=== PATIENT | male | born 1960 | race Caucasian/White ===

== ENCOUNTER → 2017-08-06 | Outpatient (CLI) | payer BC ==
--- NOTE | 2017-08-06 11:43 | RADIOLOGY IMAGING REPORT ---
FACILITY: [facility] PATIENT NAME: Misbah Oliveros : 1960 MR: [id number] V: [id number] EXAM DATE: ORDERING PHYSICIAN: NANCI GARCIA TECHNOLOGIST: Location: [facility] Patient: Misbah Oliveros : 1960 Visit/Account:[id number] Date of Sevice: 08/06/2017 SCROTAL ULTRASOUND INDICATION: Bilateral hydroceles COMPARISON: None available. FINDINGS: Right testicle measures 5.0 x 2.7 x 3.9 cm in cc, AP, and transverse dimensions respectively. There are scattered testicular microcalcifications. There is normal arterial and venous blood flow. Present is a moderate right-sided hydrocele. No varicocele identified. The right epididymal head measures 0.8 cm. Left testicle measures 5.1 x 3.5 x 3.1 cm in cc, AP, and transverse dimensions respectively. There is normal arterial and venous blood flow. There are scattered testicular microcalcification. Present is a large left-sided hydrocele No varicocele identified. The left epididymal head measures 1.0 cm. The bilateral testicles appear homogenous in echogenicity. IMPRESSION: 1. Large left and moderate right-sided hydrocele. 2. Testicular microlithiasis. In the absence of known risk factors such as testicular cancer these findings are benign. Report Dictated By: Conrad Haro DO at 08/06/2017 11:33 AM Report E-Signed By: Conrad Haro DO at 08/06/2017 11:39 AM WSN:[email or web address]
== END ==
LOC: US 02:20
PROVIDERS: ATTEND Urology
DX: N43.3 Hydrocele, unspecified (principal); N50.89 Other specified disorders of the male genital organs
CPT/HCPCS: 76870

== ENCOUNTER 2017-09-09 00:52 | Day surgery (SDC) | payer BC ==
[2017-09-04 15:52] LABS: PLATELET COUNT, AUTOMATED 189 K/uL (150-450)
--- NOTE | 2017-09-04 15:52 | EKG ---
FACILITY: [facility] PATIENT NAME: TOM JEAN-BAPTISTE : [id number] MR: [id number] V: [id number] EXAM DATE: ORDERING PHYSICIAN: NANCI GARCIA TECHNOLOGIST: LUIS ALBERTO Perez Reason : Blood Pressure : / mmHG Vent. Rate : 068 BPM Atrial Rate : 068 BPM P-R Int : 156 ms QRS Dur : 090 ms QT Int : 408 ms P-R-T Axes : 038 056 045 degrees QTc Int : 433 ms Normal sinus rhythm Normal ECG No previous ECGs available Confirmed by CODI AKERS ([id number]) on 09/05/2017 12:30:24 PM Referred By: RADHA Confirmed By:CODI AKERS
[2017-09-04 16:01] LABS: INR 1.03
--- NOTE | 2017-09-06 14:42 | HISTORY AND PHYSICAL ---
DATE OF ADMISSION: September 09, 2017 CHIEF COMPLAINT Left hydrocele. HISTORY OF PRESENT ILLNESS Patient is a 56-year-old white male with a several-year history of increasing left scrotal swelling which is now associated with a moderate amount of discomfort, especially with standing and prolonged sitting. The patient denies chronic cough, obstructed voiding symptoms, or constipation. He was evaluated in the Urology Clinic on the 02 of August. At that time, he had a normal urinalysis and a PSA of 0.5. Physical exam was consistent with a left hydrocele. A testicular ultrasound was performed on the , which confirmed the clinical exam. There were no anomalies noted to either testis. Options were discussed, and patient elected to undergo hydrocelectomy. 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 * Prediabetes. * Hypercholesterolemia. * Hypertension. * Gastroesophageal reflux disease. * ED. PAST SURGICAL HISTORY * Bilateral vasectomy. * Tonsillectomy. * Colonoscopy. CURRENT MEDICATIONS * Aspirin. * Amlodipine. * Folic acid. * Gemfibrozil. * Levothyroxine. * Losartan. * Multivitamins. * Omeprazole. ALLERGIES No known drug allergies. SOCIAL HISTORY Patient is and lives in [place], [place]. He does have a tobacco use history. FAMILY HISTORY Noncontributory. REVIEW OF SYSTEMS Patient denies shortness of breath, productive cough, fever, chills, bleeding disorder, chronic headaches, or liver disease. PHYSICAL EXAMINATION GENERAL: Patient is a well-developed, well-nourished, white male in no acute distress. HEENT: Normocephalic, atraumatic. CHEST: Clear to auscultation bilaterally. CARDIOVASCULAR: Regular rate and rhythm. ABDOMEN: Soft, nontender. No masses are palpated. GENITOURINARY: Deferred to the OR. EXTREMITIES: Without clubbing, cyanosis, or edema. NEUROLOGIC: Nonfocal. IMPRESSION A 56-year-old white male with symptomatic left hydrocele. PLAN We will perform left hydrocelectomy. Specific risks and benefits were again reviewed preoperatively including bleeding, infection, recurrence of hydrocele, damage to testes with possible testicular atrophy, recurrence or persistent of pain or discomfort, and nerve paresthesias. [facility]
[~2017-09-09] VITALS: Ht 177.8 cm; Wt 100.7 kg
[2017-09-09] VITALS (7 sets, daily range): BP systolic 131–159; BP diastolic 92–105
[~2017-09-09 00:52] MED LIST: AMLO-99 PO; ASPI-1471 PO; FOLI-68 PO; GEMF600T91 PO; LEVO50TA86 PO; LOSA25TA50 PO; MV-M1TAB19 PO; MV-M1TAB22 PO; OMEP-125 PO
[2017-09-09] MEDS ORDERED: ceFAZolin(*) 1 GM VIAL 1 GM in NS(*) 0.9% 100 ML ADDVANT BAG 100 ML IVPB ONE (06:30)
[2017-09-09] MEDS ORDERED: NORMOSOL R SOLN(*) 1000 ML BAG 1,000 ML IV PRN (06:30)
[2017-09-09] MEDS ORDERED: LIDOCAINE/SOD BICARB 8.4% SYR ID ONE (06:30)
[2017-09-09] MEDS ORDERED: MIDAZOLAM 2 MG/2 ML VIAL IVP PRN (06:30)
[2017-09-09] MEDS ORDERED: POVIDONE IOD 10% OINT 30 GM TB TP ONE (06:51)
[2017-09-09] MEDS ORDERED: ROPIVACAINE 0.2% 20 ML VIAL ONE (06:52)
[2017-09-09] MEDS ORDERED: KETOROLAC 30 MG/ML VIAL ONE (07:20)
[2017-09-09] MEDS ORDERED: DEXAMETHASONE SOD PHOS 10MG/ML ONE (07:20)
[2017-09-09] MEDS ORDERED: PROPOFOL EMUL(*) 10MG/ML 20 ML 40 ML ONE (07:20)
[2017-09-09] MEDS ORDERED: LIDOCAINE MPF 1% 5 ML VIAL ONE (07:20)
[2017-09-09] MEDS ORDERED: ONDANSETRON 4 MG/2 ML VIAL ONE (07:20)
[2017-09-09] MEDS ORDERED: fentaNYL CITR 100 MCG/2 ML AMP ONE (07:20)
[2017-09-09] MEDS ORDERED: LABETALOL HCL 100 MG/20ML VIAL ONE ×2 (08:31→08:32)
[2017-09-09] MEDS ORDERED: HYDR-4309 PO (09:07)
[2017-09-09] MEDS ORDERED: DOCU-416 PO (09:07)
[2017-09-09] MEDS ORDERED: IBUP600T22 PO (09:08)
--- NOTE | 2017-09-10 04:21 | OPERATIVE REPORT 1 ---
EVENT DATE: September 09, 2017 SURGEON: Erik Daniel MD ANESTHESIOLOGIST: Ramon Gabriel MD ANESTHESIA: General. PREOPERATIVE DIAGNOSIS Left hydrocele. POSTOPERATIVE DIAGNOSIS Left hydrocele. PROCEDURE PERFORMED Left hydrocelectomy. ESTIMATED BLOOD LOSS 10 mL. IV FLUIDS Crystalloids. DRAINS None. PATHOLOGY Hydrocele sac for permanent analysis. COMPLICATIONS None. CONDITION Patient taken to recovery room awake and in stable condition. STATEMENT OF MEDICAL NECESSITY Patient is a 56-year-old white male with a slowly increasing symptomatic left hydrocele, which was confirmed by physical exam and ultrasound. He is now being brought to the operating room for planned hydrocelectomy. Specific risks and benefits were explained, including bleeding, infection, postoperative hematoma, possible damage to vas and/or vessels with testicular atrophy and residual pain and/or discomfort and possible recurrence. Operative consent is signed and on the chart. DESCRIPTION OF OPERATION PERFORMED Patient was brought to the operating room, and after general anesthetic was obtained, he was placed supine on the operating room table and prepped and draped in usual sterile manner. A 4 cm transverse mid scrotal incision was performed on the left side with the 15 blade knife and was taken down to the tunica vaginalis. This was bluntly dissected from the left hemiscrotum and delivered through the wound. A small rent was made in the anterior surface of the tunica vaginalis, and approximately 400 mL of clear yellow fluid were drained. The hydrocele sac was opened and the testis inspected. It appeared normal without evidence of tumor or abnormality. The appendix testis was fulgurated. At this point, redundant hernia sac was removed sharply with electrocautery, and then the hernia sac was plicated on the posterior testis and cord using running locking 4-0 chromic stitches. At this point, small bleeding vessels along the cord and inner scrotum were controlled with electrocautery. 0.25% ropivacaine was given along the cord for a cord block and along the skin edge. Antibiotic solution was then copiously irrigated throughout the wound. At this point, the testis was placed back in its normal anatomical position, ensuring the vas and vessels were not twisted. Three orchiopexy stitches were placed through the dartos and tunica albuginea at the nine, six and three o'clock positions with 4-0 chromic. Following this, the incision was closed with a deep layer of running locking 2-0 chromic followed by more superficial dartos layer with 3-0 chromic. The skin was reapproximated with interrupted 4-0 mattress chromic stitches. Skin adhesive was placed along the skin edge at the conclusion of the procedure, then a sterile dressing with fluff dressing inside a scrotal support was applied. Patient was awakened in the operating room and taken to the recovery area in stable condition. The plan will be to allow the patient to be discharged home today on Dewey alternating with Motrin. He was also given a prescription for Colace. He was given instructions to use a scrotal support and ice pack for the next 36 hours. Will plan to see him in the urology clinic in approximately four to six weeks for a followup exam. STACEY
== END 2017-09-09 09:35 | disposition home or self-care (01) ==
LOC: OR 00:52
PROVIDERS: ATTEND Urology
DX: N43.3 Hydrocele, unspecified (principal); I10 Essential (primary) hypertension; E03.9 Hypothyroidism, unspecified; K21.9 Gastro-esophageal reflux disease without esophagitis; E66.9 Obesity, unspecified; E78.00 Pure hypercholesterolemia, unspecified; N52.9 Male erectile dysfunction, unspecified; R73.03 Prediabetes; E06.3 Autoimmune thyroiditis; Z79.899 Other long term (current) drug therapy
CPT/HCPCS: 36415; 55500; 81001; 85025; 85610; 85730; 87088; 88304; 93005; J0690; J1100; J1885; J2001; J2250; J2405; J2704; J2795; J3010; J3490; J7050; 82040; 82247; 82310; 82374; 82435; 82565; 82947; 84075; 84132; 84155; 84295; 84450; 84460; 84520

== ENCOUNTER → 2017-11-26 | Outpatient (CLI) | payer BC ==
[~2017-11-26] MED LIST changes: +DOCU-416 PO; +HYDR-4309 PO; +IBUP600T22 PO
--- NOTE | 2017-11-26 16:00 | RADIOLOGY IMAGING REPORT ---
FACILITY: [facility] PATIENT NAME: Sukhdeep Oliveros : 1960 MR: [id number] V: [id number] EXAM DATE: ORDERING PHYSICIAN: NANCI GARCIA TECHNOLOGIST: Location: [facility] [place] Patient: Sukhdeep Oliveros : 1960 Visit/Account:[id number] Date of Sevice: 11/26/2017 Scrotal ultrasound HISTORY: Left hydrocele, swelling, status post surgical resection of a left hydrocele in August COMPARISON: Ultrasound 08/06/2017 TECHNIQUE: Richardson scale, color and Duplex imaging of the scrotum was performed. FINDINGS: Testes: Right Testicle : The right testicle is normal is size and echotexture and measures 5 x 3.3 x 3.3 cm. 2 benign-appearing calcifications in the right testicle are noted. Normal color Doppler wavefor ms are documented. Small right hydrocele is noted. Right epididymal head measures 1 cm. Left Testicle : The left testicle is normal in size and echotexture and measures 4.5 x 2.3 x 3.1 cm. The left epididymal head measures 0.8 cm. Normal color Doppler waveforms are documented. There is a large complex septated left scrotal hydrocele measuring at least 5.3 x 6.6 x 6.6 cm. Some internal swirling debris is noted. This finding is new from prior examination. Patient reportedly had the prior left hydrocele resected. Differential diagnosis is hematoma versus abscess. IMPRESSION: 1. Large complex septated left hydrocele with internal swirling debris. Patient reportedly had prio r surgery for resection of the hydrocele at the end of August. The differential diagnosis is a hemato ma versus an abscess. This collection deforms the left testicle but blood flow is documented to the left testicle. Results were called to NANCI GARCIA at 11/26/2017 3:14 PM. Report Dictated By: Eloy Guerra MD at 11/26/2017 2:35 PM Report E-Signed By: Eloy Guerra MD at 11/26/2017 3:55 PM WSN:[email or web address]
== END ==
LOC: US 01:48
PROVIDERS: ATTEND Urology
DX: N43.3 Hydrocele, unspecified (principal)
CPT/HCPCS: 76870

== ENCOUNTER → 2018-04-14 | Outpatient (CLI) | payer BC ==
[~2018-04-14] MED LIST changes: +AMLO-113 PO; -AMLO-99 PO; -GEMF600T91 PO; +GEMF600T92 PO; -HYDR-4309 PO; +HYDR-653 PO; -LOSA25TA50 PO; +LOSA25TA52 PO
--- NOTE | 2018-04-14 17:58 | RADIOLOGY IMAGING REPORT ---
FACILITY: [facility] [place] PATIENT NAME: Sukhdeep Oliveros : 1960 MR: [id number] V: [id number] EXAM DATE: [id number] ORDERING PHYSICIAN: MALINI KELSEY TECHNOLOGIST: Location: [facility] Patient: Sukhdeep Oliveros : 1960 Visit/Account:[id number] Date of Sevice: 04/14/2018 Exam type: FOOT 2 VIEW LEFT History: Ankle edema and pain Comparison: Left ankle series performed today. Findings: Slightly comminuted oblique fracture through the distal left fibula was better depicted on today's le ft ankle series. There is no evidence of acute fracture or dislocation involving the left foot IMPRESSION: 1. No evidence of acute fracture-dislocation involving the left foot Slightly comminuted oblique fracture to the distal left fibula was better seen on today's left ankle series Report Dictated By: Veronica Gant MD at 04/14/2018 5:53 PM Report E-Signed By: Veronica Gant MD at 04/14/2018 5:54 PM WSN:[email or web address]
--- NOTE | 2018-04-14 17:58 | RADIOLOGY IMAGING REPORT ---
FACILITY: [facility] [place] PATIENT NAME: Sukhdeep Oliveros : 1960 MR: [id number] V: [id number] EXAM DATE: [id number] ORDERING PHYSICIAN: MALINI KELSEY TECHNOLOGIST: Location: [facility] Patient: Sukhdeep Oliveros : 1960 Visit/Account:[id number] Date of Sevice: 04/14/2018 Exam type: ANKLE 2 VIEW LEFT History: Ankle pain and edema Comparison: None. Findings: There is a slightly comminuted oblique fracture through the distal metaphysis of the left fibula with approximate 2 mm lateral displacement of the distal fracture fragment. The ankle mortise is grossly intact. There is a moderate amount of soft tissue swelling present IMPRESSION: 1. Slightly comminuted oblique fracture to the distal metaphysis of the left fibula with approximate 2 mm lateral displacement distal fracture fragment. There is associated moderate soft tissue swelli ng Report Dictated By: Veronica Gant MD at 04/14/2018 5:51 PM Report E-Signed By: Veronica Gant MD at 04/14/2018 5:53 PM WSN:[email or web address]
== END ==
LOC: RAD 16:18
PROVIDERS: ATTEND Nurse Practitioner Family
DX: S82.452A Displaced comminuted fracture of shaft of left fibula, initial encounter for closed fracture (principal); R22.42 Localized swelling, mass and lump, left lower limb

== ENCOUNTER → 2018-04-17 | Outpatient (CLI) | payer BC | LOC: US 00:30 | PROVIDERS: ATTEND Nurse Practitioner Family | DX: R55 Syncope and collapse (principal); M25.579 Pain in unspecified ankle and joints of unspecified foot; R60.0 Localized edema; I10 Essential (primary) hypertension | CPT/HCPCS: 93306 ==

== ENCOUNTER → 2018-06-16 | Outpatient (CLI) | payer BC ==
[~2018-06-16] MED LIST changes: -AMLO-113 PO; +AMLO-127 PO; +GADOBENATE 529MG/1ML 15ML VIAL IVP ONE; -GEMF600T92 PO; +GEMF600T96 PO; -LOSA25TA52 PO; +LOSA25TA57 PO; +NS(*) 0.9% 50 ML BAG 50 ML ONE
--- NOTE | 2018-06-16 13:14 | RADIOLOGY IMAGING REPORT ---
FACILITY: [facility] [place] PATIENT NAME: Sukhdeep Oliveros : 1960 MR: [id number] V: [id number] EXAM DATE: ORDERING PHYSICIAN: IRENE PERDOMO TECHNOLOGIST: Location: [facility] Patient: Sukhdeep Oliveros : 1960 Visit/Account:[id number] Date of Sevice: 06/16/2018 MRA HEAD W/O CONTRAST COMPARISON: None Additional pertinent history: Drop attack Technique: 3-D [id number] imaging was performed of the telida of [place]son with multiple reformatted images obtained off the axial source data. FINDINGS: Vascular variants: origin of the left posterior cerebral artery. Visualized vertebrobasilar system: Negative Distal internal carotid arteries: Negative Internal carotid artery bifurcation: Negative A1 and M1 segments: Negative A2 and M2 segments: Negative Anterior communicating artery: Negative P1 segments/superior cerebellar arteries: Negative IMPRESSION: Normal MRA of the telida of [place]son. Report Dictated By: Vishnu Henry MD at 06/16/2018 12:58 PM Report E-Signed By: Vishnu Henry MD at 06/16/2018 1:04 PM WSN:[email or web address]
--- NOTE | 2018-06-16 13:34 | RADIOLOGY IMAGING REPORT ---
FACILITY: [facility] [place] PATIENT NAME: Sukhdeep Oliveros : 1960 MR: [id number] V: [id number] EXAM DATE: ORDERING PHYSICIAN: IRENE PERDOMO TECHNOLOGIST: Location: Patient: Sukhdeep Oliveros : 1960 Visit/Account:[id number] Date of Sevice: 06/16/2018 MRA NECK W W/O CONTRAST COMPARISON: None ADDITIONAL PERTINENT HISTORY: Drop attack Technique: 3-D [id number] imaging and contrasted enhanced MRA was performed of the neck arterial vasculature with multiple reformatted images obtained off the axial source data. Study was performed before and after the IV administration of gadolinium. Degrees of stenosis of the cervical internal carotid arteries are based on NASCET criteria. CONTRAST: 15 ml of MultiHance FINDINGS: Vascular variants: None Great vessel origins/aortic arch: Negative Vertebral arteries: Negative Common carotid arteries: Negative Common carotid artery bifurcations: Negative Cervical internal carotid arteries: Mild atherosclerotic irregularity along the proximal portion of t he right cervical internal carotid artery without significant stenosis. Visualized intracranial arterial anatomy: Negative Surrounding soft tissues: Negative IMPRESSION: 1. Mild atherosclerotic irregularity along the proximal right cervical internal carotid artery withou t significant stenosis. 2. Remaining portions of the exam are unremarkable. Report Dictated By: Vishnu Henry MD at 06/16/2018 1:21 PM Report E-Signed By: Vishnu eHnry MD at 06/16/2018 1:26 PM WSN:[email or web address]
--- NOTE | 2018-06-16 13:36 | RADIOLOGY IMAGING REPORT ---
FACILITY: [facility] [place] PATIENT NAME: Sukhdepe Oliveros : 1960 MR: [id number] V: [id number] EXAM DATE: ORDERING PHYSICIAN: IRENE PERDOMO TECHNOLOGIST: Location: [facility] [place] Patient: Sukhdeep Oliveros : 1960 Visit/Account:[id number] Date of Sevice: 06/16/2018 MR SPINE CERVICAL W/ & W/O CON COMPARISON: None Additional pertinent history: Neck pain Technique: Multiplanar multisequence cervical spine MRI was performed with and without gadolinium enh ancement. CONTRAST: 15 ml of MultiHance. FINDINGS: Vertebral body height and alignment: Straightening of normal cervical lordosis centered at C5-C6. Min imal anterior listhesis of C3 on C4. Vertebral marrow signal: Type II degenerative endplate changes at C5-C6 and C6-C7 type one degenerati ve endplate changes at C7-T1. Vertebral bodies: Anteriorly and posteriorly directed osteophytes in the lower cervical spine. Cervical spinal cord signal, craniocervical junction and visualized posterior fossa: Negative Surrounding soft tissues: Negative Inspection of the disc spaces reveal the following: C1-C2: Negative C2-C3: Mild facet hypertrophic changes with minimal circumferential disc bulging. No significant milla l or neural foraminal narrowing. C3-C4: Posterior broad-based disc protrusion with facet and uncovertebral degenerative changes. Sever e right-sided neural foraminal narrowing. Moderate left-sided neural foraminal narrowing. Mild canal stenosis. C4-C5: Posterior broad-based disc protrusion with facet and uncovertebral degenerative changes. Mild bilateral neural foraminal narrowing with mild canal stenosis. C5-C6: Posterior broad-based disc protrusion with facet and uncovertebral degenerative changes. Sever e bilateral neural foraminal narrowing with severe canal stenosis. C6-C7: Posterior broad-based disc protrusion with facet and uncovertebral degenerative changes. Super imposed right neural foraminal disc extrusion. Severe bilateral neural foraminal narrowing with moder ate canal stenosis. C7-T1: Posterior broad-based disc protrusion with facet hypertrophic changes. Severe bilateral neural foraminal narrowing with mild to moderate canal stenosis. Pathologic enhancement: Negative. Impression: 1. Multilevel spondylitic change as discussed above. 2. Findings felt to be potentially most significant at C5-C6 with severe canal stenosis and severe bi lateral neural foraminal narrowing. Report Dictated By: Vishnu Henry MD at 06/16/2018 1:26 PM Report E-Signed By: Vishnu Henry MD at 06/16/2018 1:32 PM WSN:[email or web address]
== END ==
LOC: MRI 01:29
PROVIDERS: ATTEND Psychiatry & Neurology Neurology
DX: I67.2 Cerebral atherosclerosis (principal); M47.892 Other spondylosis, cervical region; R55 Syncope and collapse; M54.2 Cervicalgia; R41.3 Other amnesia; R26.9 Unspecified abnormalities of gait and mobility; R29.898 Other symptoms and signs involving the musculoskeletal system
CPT/HCPCS: 36415; 70544; 72156; 82164; 82607; 82746; 83921; 84443; 86038; A9577; J7050; 70549

== ENCOUNTER → 2018-07-09 | Outpatient (CLI) | payer BC ==
[~2018-07-09] MED LIST changes: -NS(*) 0.9% 50 ML BAG 50 ML ONE
--- NOTE | 2018-07-09 12:30 | RADIOLOGY IMAGING REPORT ---
FACILITY: [facility] [place] PATIENT NAME: Sukhdeep Oliveros : 1960 MR: [id number] V: [id number] EXAM DATE: ORDERING PHYSICIAN: IRENE PERDOMO TECHNOLOGIST: Location: [facility] [place] Patient: Sukhdeep Oliveros : 1960 Visit/Account:[id number] Date of Sevice: 07/09/2018 Study: MRI of the brain without and with gadolinium contrast. Indication: Syncope, neck pain, memory loss, gait abnormality Comparison study: June 16, 2018 Contrast used: 15 mL MultiHance gadolinium contrast Technique: Multiplanar MRI sequences were obtained through the brain before and after the administrat ion of gadolinium contrast. The examination demonstrates no evidence of acute intracranial hemorrhage. There is no evidence of ex tra-axial collection or hydrocephalus. There are minimal patchy areas of high T2-weighted signal present within the periventricular white ma tter. These areas are nonspecific in appearance. There is no contrast enhancement associated with the se lesions. The pituitary gland is unremarkable in appearance. There is no evidence of abnormality of the pineal gland. A diffusion-weighted sequence was performed and demonstrates no evidence of active ischemia. There is no evidence of active infarct The orbits are unremarkable. The paranasal sinuses are unremarkable Following the administration of gadolinium contrast, there is no abnormal intracranial contrast enhan cement. IMPRESSION: No acute intracranial abnormality identified. There are minimal patchy areas of high T2-w eighted signal present within the periventricular white matter. These areas are nonspecific in appear ance. There is no evidence of intracranial mass lesion. There is no evidence of active ischemia. Report Dictated By: Ras Smart at 07/09/2018 11:31 AM Report E-Signed By: Ras Smart at 07/09/2018 12:26 PM WSN:[email or web address]
== END ==
LOC: MRI 00:50
PROVIDERS: ATTEND Psychiatry & Neurology Neurology
DX: R41.3 Other amnesia (principal); R26.9 Unspecified abnormalities of gait and mobility; M54.2 Cervicalgia; R55 Syncope and collapse
CPT/HCPCS: 70553; A9577

== ENCOUNTER → 2018-08-05 | Outpatient (CLI) | payer BC ==
[~2018-08-05] MED LIST changes: -GADOBENATE 529MG/1ML 15ML VIAL IVP ONE
== END ==
LOC: RESP 01:17
PROVIDERS: ATTEND Internal Medicine Pulmonary Disease
DX: R05 Cough (principal)
CPT/HCPCS: 94060; 94726; 94729